=== PATIENT | male | born 1975 | race Two or more races ===

== ENCOUNTER 2023-05-03 20:27 | Emergency (ER) | payer OTHER ==
[~2023-05-03] VITALS: Ht 157.5 cm; Wt 63.6 kg
[2023-05-03] MEDS ORDERED: SODIUM CHLORIDE 0.9% 1,000 ML IV ONE (21:00)
[2023-05-03] MEDS ORDERED: LIDOCAINE VISCOUS 2% 15ML UD PO ONE (21:00)
[2023-05-03] MEDS ORDERED: CLINDAMYCIN 900MG IV 50 ML IV ONE (21:00)
[2023-05-03] MEDS ORDERED: MORPHINE SULFATE 4 MG/ML SYR/VIAL IV ONE (21:00)
[2023-05-03] MEDS ORDERED: DexAMETHasone SOD PHOS 10MG/1ML VIAL INJ IV ONE (21:00)
[2023-05-03] MEDS ORDERED: FAMOTIDINE (10MG/ML) 2ML VL IV ONE (21:00)
[2023-05-03] MEDS ORDERED: ONDANSETRON HCL 4 MG/2 ML VIAL IV ONE (21:00)
[2023-05-03] MEDS ORDERED: KETOROLAC TROMETH 30 MG/ML 1ML VIAL IV ONE (21:00)
[2023-05-03] MEDS ORDERED: IOHEXOL 300 MG/ML 100ML BOTTLE IJ ONE (21:05)
[2023-05-03 21:38] LABS: Basophils # (auto) 0 10 ^3/uL (0-0.2); Basophils % (auto) 0.5 % (0.0-2.0); Eosinophils # (auto) 0.1 10 ^3/uL (0-0.8); Eosinophils % (auto) 1.2 % (0.0-7.0); Hematocrit 48.9 % (41.0-53.0); Hemoglobin 16.9 g/dL (13.5-17.5); Lymphocytes # (auto) 1.8 10 ^3/uL (0.4-5.4); Lymphocytes % (auto) 24.3 % (10.0-50.0); Mean Corpuscular Hemoglobin 30.2 pg (28.0-32.0); Mean Corpuscular Hgb Conc. 34.6 g/dL (32.0-36.0); Mean Corpuscular Volume 87.1 fL (80.0-100.0); Monocytes # (auto) 0.5 10 ^3/uL (0-1.3); Monocytes % (auto) 6.3 % (0.0-12.0); Neutrophils # (auto) 4.9 10 ^3/uL (1.6-8.6); Neutrophils % (auto) 67.7 % (37.0-80.0); Nucleated Red Blood Cells % 0.5 %; Red Blood Cells 5.61 10^6/uL (4.5-5.90); Red Cell Distribution Width 13.6 % (11.8-14.3); White Blood Cell 7.3 10^3/uL (4.4-10.8)
[2023-05-03] MEDS ORDERED: CLINDAMYCIN 600MG IV 50 ML IV ONE (21:45)
[2023-05-03 21:52] LABS: Alanine Aminotransferase 14 U/L (7-40); Alkaline Phosphatase 110 U/L (46-116); Anion Gap 5 (5-15); Aspartate Aminotransferase 12 U/L (13-40); BUN/Creatinine Ratio 6.6 (10.0-20.0); Blood Urea Nitrogen 7 mg/dL (9-23); Calcium 9.8 mg/dL (8.7-10.4); Carbon Dioxide 29 mmol/L (20-30); Chloride 106 mmol/L (98-107); Glucose 86 mg/dL (74-106); Magnesium 2.2 mg/dL (1.6-2.6); Potassium 4.3 mmol/L (3.5-5.1); Sodium 140 mmol/L (136-145)
[2023-05-03 21:53] LABS: Bilirubin, Total 0.7 mg/dL (0.2-1.0); Total Protein 8.4 g/dL (5.7-8.2)
[2023-05-04] MEDS ORDERED: ACET-1304 PO (01:12)
[2023-05-04] MEDS ORDERED: IBU600T PO (01:12)
[2023-05-04] MEDS ORDERED: DEX4T PO (01:12)
[2023-05-04] MEDS ORDERED: FAMO20TA10 PO (01:12)
[2023-05-04] MEDS ORDERED: CLIN300C70 PO (01:12)
[2023-05-04 02:26] VITALS: BP 125/82; PULSE 63; RESP 18; TEMP 98.4; O2SAT 96
== END 2023-05-04 02:28 ==
LOC: EEVIPCON 20:27 → ER 20:27
DX: J02.9 Acute pharyngitis, unspecified (principal); F45.8 Other somatoform disorders; I10 Essential (primary) hypertension; I25.2 Old myocardial infarction; M54.2 Cervicalgia
CPT/HCPCS: 36415; 70491; 71045; 80053; 83605; 83735; 84484; 85025; 87040; 93005; 96365; 96375; 99285; J1100; J1885; J2270; J2405; J3490; J7030; Q9967